=== PATIENT | female | born 1930 | race Caucasian/White ===

== ENCOUNTER → 2016-05-19 | Outpatient (CLI) | payer OTHER, BC ==
[~2016-05-19] MED LIST: AMOX500C3 PO; ASPI81TA28 PO; ATOR-22 PO; CHOL200027 PO; ELQ25 PO; ESTCR PV; NITR-5 PO; NRV5 PO; POTA-335 PO
== END | disposition home or self-care (01) ==
LOC: C.LABSPEC 17:02
PROVIDERS: ATTEND Nurse Practitioner Family
DX: N39.0 Urinary tract infection, site not specified (principal)

== ENCOUNTER → 2016-06-04 | Outpatient (CLI) | payer OTHER, BC | END | disposition home or self-care (01) | LOC: C.LABSPEC 17:06 | PROVIDERS: ATTEND Internal Medicine | DX: N31.8 Other neuromuscular dysfunction of bladder (principal); R35.1 Nocturia; R35.0 Frequency of micturition; N39.0 Urinary tract infection, site not specified; R39.15 Urgency of urination; R33.9 Retention of urine, unspecified; N39.41 Urge incontinence ==

== ENCOUNTER → 2016-08-13 | Outpatient (CLI) | payer OTHER, BC | END | disposition home or self-care (01) | LOC: C.LABSPEC 16:54 | PROVIDERS: ATTEND Urology | DX: R35.1 Nocturia (principal); A49.8 Other bacterial infections of unspecified site ==

== ENCOUNTER → 2016-09-08 | Outpatient (CLI) | payer OTHER, BC | END | disposition home or self-care (01) | LOC: C.LABSPEC 17:18 | PROVIDERS: ATTEND Nurse Practitioner Family | DX: N39.0 Urinary tract infection, site not specified (principal) ==

== ENCOUNTER → 2016-10-20 | Outpatient (CLI) | payer OTHER, BC ==
[2016-10-20 10:54] LABS: MEAN CELL VOLUME 91.3 fL (80-100); MEAN CORPUSCULAR HGB CONC 32.8 g/dl (32-36); MEAN PLATELET VOLUME 9.4 fL (7.4-10.4); PLATELET COUNT 235 K/uL (130-400); RED BLOOD COUNT 4.27 M/uL (4.2-5.4); WHITE BLOOD COUNT 6.57 K/uL (4.8-10.8)
[2016-10-20 11:05] LABS: ALT/SGPT 16 U/L (12-78); BLOOD UREA NITROGEN 16 mg/dl (7-18); BUN/CREATININE RATIO 26.4 (10-20); CALCIUM 8.6 mg/dl (8.5-10.1); CARBON DIOXIDE 27 mmol/L (21-32); CHLORIDE 109 mmol/L (98-107); CREATININE 0.59 mg/dl (0.60-1.20); GLUCOSE 88 mg/dl (70-99); POTASSIUM 4.2 mmol/L (3.5-5.1); SODIUM 142 mmol/L (136-145)
[2016-10-20 11:08] LABS: ALB/GLOB RATIO 0.9 (0.9-2); ALKALINE PHOSPHATASE 84 U/L (45-117); AST/SGOT 18 U/L (15-37)
== END ==
LOC: C.LABFOXMH 08:24
PROVIDERS: ATTEND Internal Medicine
DX: I10 Essential (primary) hypertension (principal)

== ENCOUNTER → 2016-12-25 | Outpatient (CLI) | payer OTHER, BC | END | disposition home or self-care (01) | LOC: C.LAB 12:34 | PROVIDERS: ATTEND Orthopaedic Surgery | DX: Z48.89 Encounter for other specified surgical aftercare (principal) ==

== ENCOUNTER → 2017-01-05 | Outpatient (CLI) | payer OTHER, BC ==
[2017-01-05 09:23] LABS: BLOOD UREA NITROGEN 19 mg/dl (7-18); BUN/CREATININE RATIO 28.8 (10-20); CALCIUM 8.8 mg/dl (8.5-10.1); CARBON DIOXIDE 28 mmol/L (21-32); CHLORIDE 106 mmol/L (98-107); CREATININE 0.65 mg/dl (0.60-1.20); GLUCOSE 89 mg/dl (70-99); POTASSIUM 4.4 mmol/L (3.5-5.1); SODIUM 139 mmol/L (136-145)
== END ==
LOC: C.LABFOXMH 08:52
PROVIDERS: ATTEND Nurse Practitioner Adult Health
DX: N31.8 Other neuromuscular dysfunction of bladder (principal)

== ENCOUNTER → 2017-01-08 | Outpatient (CLI) | payer OTHER, BC | END | disposition home or self-care (01) | LOC: C.LABSPEC 01-06 17:11 | PROVIDERS: ATTEND Urology | DX: N39.0 Urinary tract infection, site not specified (principal) ==

== ENCOUNTER → 2017-01-09 | Outpatient (CLI) | payer OTHER, BC | END | disposition home or self-care (01) | LOC: C.LABFOXMH 08:08 | PROVIDERS: ATTEND Internal Medicine | DX: R06.00 Dyspnea, unspecified (principal) ==

== ENCOUNTER → 2017-03-12 | Outpatient (CLI) | payer OTHER, BC ==
--- NOTE | 2017-03-12 15:31 | MAMMOGRAPHY REPORT ---
BILATERAL DIGITAL SCREENING MAMMOGRAM WITH CAD: 03/12/2017 CLINICAL HISTORY: Routine screening. Patient has no complaints. TECHNIQUE: Current study was also evaluated with a Computer Aided Detection (CAD) system. Bilateral CC and MLO views were obtained. COMPARISON: Comparison is made to exams dated: 03/06/2016 mammogram, 03/02/2015 mammogram, 08/29/2014 u ltrasound, 08/29/2014 mammogram, 08/17/2014 mammogram, and 08/16/2013 mammogram - [facility] enter. BREAST COMPOSITION: There are scattered areas of fibroglandular density in both breasts. FINDINGS: No suspicious masses, calcifications, or areas of architectural distortion are noted in ei ther breast. There has been no significant interval change compared to prior exams. Benign-appearing right breast calcifications are again noted. Small circumscribed benign-appearing mass in the left lateral anterior breast is stable compared to prior exams. IMPRESSION: ACR BI-RADS CATEGORY 2: BENIGN There is no mammographic evidence of malignancy. A 1 year screening mammogram is recommended. The pa tient will receive written notification of the results. Approximately 10% of breast cancers are not detected with mammography. A negative mammographic report should not delay biopsy if a clinically suggestive mass is present. Birdie Sorenson M.D. /:03/12/2017 15:07:12 Paper Testing Supervisor: Ruthie CACERES)([place]), [facility] letter sent: Normal 1/2 BI-RADS Code: ACR BI-RADS Category 2: Benign
== END | disposition home or self-care (01) ==
LOC: C.MAMM 10:13
PROVIDERS: ATTEND Internal Medicine
DX: Z12.31 Encounter for screening mammogram for malignant neoplasm of breast (principal)

== ENCOUNTER → 2017-04-23 | Outpatient (CLI) | payer OTHER, BC ==
--- NOTE | 2017-04-23 14:57 | DIAGNOSTIC IMAGING REPORT ---
CHEST 2 VIEWS ROUTINE HISTORY: ABNORMAL BREATH SOUNDS AT RIGHT BASE, RIB FX ANTERIOR 4TH RIB COMPARISON: Chest 08/05/2015. FINDINGS: No pneumothorax. No pleural effusions. The lungs are mildly hyperexpanded with apical predominant emphysematous changes. The heart is normal in size. Mild diffuse interstitial thickening most notable within the lung bases. No focal lung consolidations to suggest pneumonia. No evidence for pulmonary edema. IMPRESSION: 1. Mild interstitial thickening within the lungs most pronounced at the lung bases. This suggest mild fibrotic change. An atypical interstitial pneumonitis could also have a similar appearance. 2. Mild emphysema. Electronically signed by: Emmanuel Wilson M.D. 04/23/2017 2:56 PM Dictated Date/Time: 04/23/2017 2:54 PM
== END | disposition home or self-care (01) ==
LOC: C.RADBC 14:38
PROVIDERS: ATTEND Internal Medicine Hospice and Palliative Medicine
DX: R07.81 Pleurodynia (principal); W19.XXXA Unspecified fall, initial encounter

== ENCOUNTER → 2017-11-12 | Outpatient (CLI) | payer OTHER, BC ==
[2017-11-12 08:40] LABS: HEMATOCRIT 39.3 % (37-47); HEMOGLOBIN 13.2 g/dL (12.0-16.0); MEAN CELL VOLUME 92.7 fL (80-100); MEAN CORPUSCULAR HEMOGLOBIN 31.1 pg (25-34); MEAN CORPUSCULAR HGB CONC 33.6 g/dl (32-36); MEAN PLATELET VOLUME 9.6 fL (7.4-10.4); PLATELET COUNT 214 K/uL (130-400); RED CELL DISTRIBUTION WIDTH CV 12.9 % (11.5-14.5); RED CELL DISTRIBUTION WIDTH SD 43.9 fL (36.4-46.3); WHITE BLOOD COUNT 5.52 K/uL (4.8-10.8)
[2017-11-12 09:02] LABS: ALBUMIN 3.4 gm/dl (3.4-5.0); ALKALINE PHOSPHATASE 79 U/L (45-117); ALT/SGPT 16 U/L (12-78); AST/SGOT 16 U/L (15-37); BLOOD UREA NITROGEN 23 mg/dl (7-18); CALCIUM 8.5 mg/dl (8.5-10.1); CARBON DIOXIDE 28 mmol/L (21-32); CHOLESTEROL 127 mg/dl (0-200); CREATININE 0.66 mg/dl (0.60-1.20); GLUCOSE 96 mg/dl (70-99); LDL CHOLESTEROL CALCULATED 65 mg/dl; POTASSIUM 4.1 mmol/L (3.5-5.1); SODIUM 141 mmol/L (136-145); TOTAL PROTEIN 6.6 gm/dl (6.4-8.2)
== END ==
LOC: C.LABFOXMH 07:51
PROVIDERS: ATTEND Internal Medicine
DX: E78.00 Pure hypercholesterolemia, unspecified (principal); I10 Essential (primary) hypertension; R41.2 Retrograde amnesia